=== PATIENT | female | born 1975 | race Caucasian/White ===

== ENCOUNTER → 2019-10-04 | Day surgery (SDC) | payer BC ==
--- NOTE | 2019-10-04 08:32 | MMO ---
Stereotactic guided biopsy left breast microcalcifications Surgical specimen mammography Left diagnostic mammogram post biopsy HISTORY: Abnormal mammogram. Microcalcifications. FINDINGS: After explaining the procedure and answering all questions, the localization cluster at the superior lateral aspect of left breast was visualized. Sterile technique, buffered local anesthesia, stereotactic guidance, and a superior approach were use d to carefully advance a 10-gauge vacuum-assisted needle into the microcalcification cluster. A total of 9 10-gauge specimens were obtained. Surgical specimen mammography shows microcalcifications in the tissue. Localization clip was placed in the biopsy bed under stereotactic guidance. Needle was removed. Tracee alfaro tolerated the procedure well and was eventually dismissed in good condition. Postprocedure mammogram shows heterogeneously dense fibroglandular tissue. Microcalcification cluster at the superior lateral aspect of the left breast has been removed. Localization clip and small gas pocket now in the biopsy bed. IMPRESSION : Technically successful stereotactic guided biopsy left breast microcalcifications. Pathology is pendi ng.
== END | disposition home or self-care (01) ==
LOC: MAMMO 06:51
PROVIDERS: ATTEND Family Medicine
PROC: 0HBU3ZX Excision of Left Breast, Percutaneous Approach, Diagnostic (ICD-10-PCS; principal; 2019-10-04)
DX: N60.12 Diffuse cystic mastopathy of left breast (principal)
CPT/HCPCS: 19081; 76098; 88305